=== PATIENT | male | born 1985 | race Caucasian/White ===

== ENCOUNTER → 2024-02-02 06:39 | Outpatient (REF) | payer MEDICARE, OTHER, SELFPAY ==
[2024-02-02 07:30] LABS: % Basophils 0.6 % (0-2); % Eosinophils 4.5 % (0-6); % Immature Granulocytes 0.4 % (0-0.5); % Lymphocytes 22.2 % (20.5-51.1); % Monocytes 5.8 % (1.7-9.3); % Neutrophils 66.5 % (42.2-75.2); Absolute Basophils 0.1 10^3/uL (0-0.2); Absolute Eosinophils 0.7 10^3/uL (0-0.7); Absolute Immature Granulocytes 0.1 10^3/uL (0-0.05); Absolute Lymphocytes 3.5 10^3/uL (1.2-3.4); Absolute Monocytes 0.9 10^3/uL (0.1-0.6); Absolute Neutrophils 10.4 10^3/uL (1.4-6.5); Hematocrit 43.6 % (39.0-52.0); Hemoglobin 15.7 g/dL (13.0-18.0); Mean Corpuscular Hgb 31.2 pg (27.0-31.0); Mean Corpuscular Volume 86.5 fL (80.0-94.0); Mean Platelet Volume 11.8 fL (7.4-10.4); Nucleated Red Blood Cells % 0 % (-); Platelet Count 223 10^3/uL (130-400); Red Blood Cell Count 5.04 10^6/uL (4.70-6.10); Red Cell Dist. Width 12.9 % (11.5-14.5); White Blood Cell Count 15.7 10^3/uL (4.8-10.8)
[2024-02-02 08:13] LABS: ALT (SGPT) 93 U/L (0-50); AST (SGOT) 53 U/L (17-59); Albumin 4.5 g/dl (3.5-5.0); Alkaline Phosphatase 116 U/L (38-126); Blood Urea Nitrogen 16 mg/dl (9-20); Calcium 9.3 mg/dl (8.4-10.2); Carbon Dioxide 21 mmol/L (22-30); Chloride 105 mmol/L (98-107); Glucose 100 mg/dl (70-99); HDL Cholesterol 35 mg/dl; Potassium 4.5 mmol/L (3.5-5.1); Sodium 134 mmol/L (135-145); Total Bilirubin 0.3 mg/dl (0.2-1.3); Total Cholesterol 251 mg/dl (50-199); Total Protein 7.7 g/dl (6.3-8.2); eGFR > 60.00
[2024-02-02 08:29] LABS: Triglyceride 699 mg/dl (10-149)
[2024-02-02 08:52] LABS: LDL Cholesterol, Direct 131 mg/dl
[2024-02-02 10:05] LABS: Glycohemoglobin (HgbA1c) 5.9 % (4.0-5.6)
[2024-02-02 19:20] LABS: Hepatitis B Surface Antigen Negative (Negative)
[2024-02-02 19:38] LABS: Hepatitis B Core Ab, Total Negative (Negative); Hepatitis C Antibody Negative (Negative)
[2024-02-02 20:18] LABS: Hepatitis A Antibody, Total Positive (Negative)
[2024-02-03 14:41] LABS: HIV Combo Negative (Negative)
== END ==
LOC: REG 06:39
PROVIDERS: ATTENDING PHYSICIAN Nurse Practitioner Family; FAMILY PHYSICIAN Family Medicine
DX: L30.9 Dermatitis, unspecified (principal); R79.89 Other specified abnormal findings of blood chemistry; R74.8 Abnormal levels of other serum enzymes; F20.0 Paranoid schizophrenia; Z20.2 Contact with and (suspected) exposure to infections with a predominantly sexual mode of transmission; R53.83 Other fatigue
CPT/HCPCS: 36415; 80053; 80061; 83036; 83721; 84443; 85025; 86704; 86708; 86803; 87340; 87389

== ENCOUNTER → 2024-03-18 07:42 | Outpatient (REF) | payer MEDICARE, OTHER, SELFPAY | LOC: RAD 07:42 | PROVIDERS: ATTENDING PHYSICIAN Nurse Practitioner Family; FAMILY PHYSICIAN Physician Assistant | DX: K59.01 Slow transit constipation (principal) | CPT/HCPCS: 74022 ==

== ENCOUNTER → 2024-10-22 06:47 | Outpatient (REF) | payer MEDICARE, OTHER, SELFPAY ==
[2024-10-22 07:46] LABS: Lipase 128 U/L (23-300)
[2024-10-22 08:00] LABS: INR 0.92; PT 12.7 Sec (11.4-14.6)
[2024-10-22 08:18] LABS: Hepatitis B Surface Antigen Negative (Negative)
[2024-10-22 08:35] LABS: Hepatitis B Core Ab, Total Negative (Negative); Hepatitis B Surface Antibody Positive
[2024-10-22 08:38] LABS: Hepatitis A Antibody, Total Positive (Negative)
[2024-10-22 15:43] LABS: tTG IgG Antibody 12.3 EU/ml (0-19)
[2024-10-25 00:30] LABS: Endomysial IgA Antibody Titer <1:10 (<1:10)
[2024-10-25 05:56] LABS: IgA 566 mg/dl (70-400)
== END ==
LOC: REG 06:47
PROVIDERS: ATTENDING PHYSICIAN Physician Assistant
DX: R10.13 Epigastric pain (principal); K76.0 Fatty (change of) liver, not elsewhere classified; Z11.59 Encounter for screening for other viral diseases; R74.01 Elevation of levels of liver transaminase levels; R94.5 Abnormal results of liver function studies
CPT/HCPCS: 36415; 82784; 83516; 83690; 85610; 86231; 86704; 86706; 86708; 87340

== ENCOUNTER → 2024-12-23 07:15 | Outpatient (REF) | payer MEDICARE, OTHER, SELFPAY | LOC: RAD 07:15 | PROVIDERS: ATTENDING PHYSICIAN Family Medicine | DX: M54.6 Pain in thoracic spine (principal); G89.29 Other chronic pain | CPT/HCPCS: 72072 ==